=== PATIENT | female | born 1970 | race Caucasian/White ===

== ENCOUNTER → 2017-06-18 | Outpatient (CLI) | payer OTHER ==
[~2017-06-18] MED LIST: LISI20TA3 PO; NAPR1TAB9 PO
--- NOTE | 2017-06-18 12:23 | DIAGNOSTIC IMAGING REPORT ---
C-SPINE ROUTINE 4 OR 5 VIEWS CLINICAL HISTORY: 46 years-old Female presenting with CERVICAL STRAIN after lifting something heavy, sore neck. TECHNIQUE: Frontal, bilateral oblique, lateral, and open-mouth odontoid views of the cervical spine were obtained. COMPARISON: MR from 2008. FINDINGS: Straightening of cervical lordosis, possibly positional. Vertebral body heights and intervertebral disc spaces preserved. No radiographic evidence of acute fracture or subluxation. Normal predental interval. Mild right osseous neural foraminal narrowing at C4-5 and C5-6 may be present. Left neural foramina widely patent. No prevertebral soft tissue swelling. The lateral masses of C1 articulate normally with C2. IMPRESSION: Possible mild right osseous neural foraminal narrowing at C4-5 and C5-6. This would be better characterized on cross-sectional imaging. No radiographic evidence of acute osseous injury of the cervical spine. Electronically signed by: Clement Becker M.D. 06/18/2017 12:22 PM Dictated Date/Time: 06/18/2017 12:19 PM
== END | disposition home or self-care (01) ==
LOC: C.RAD1850 11:59
PROVIDERS: ATTEND Preventive Medicine Occupational Medicine
DX: S16.1XXA Strain of muscle, fascia and tendon at neck level, initial encounter (principal); X58.XXXA Exposure to other specified factors, initial encounter

== ENCOUNTER → 2018-06-02 | Outpatient (CLI) | payer OTHER ==
--- NOTE | 2018-06-02 13:19 | DIAGNOSTIC IMAGING REPORT ---
L ANKLE MIN 3 VIEWS ROUTINE CLINICAL HISTORY: S99.919A left ankle pain status post trauma COMPARISON: None. DISCUSSION: There is minor lateral soft tissue swelling. No fractures or dislocations are visualized. The ankle mortise appears intact. IMPRESSION: No acute fractures or dislocations identified. Electronically signed by: Per Wynn M.D. 06/02/2018 1:18 PM Dictated Date/Time: 06/02/2018 1:17 PM
== END | disposition home or self-care (01) ==
LOC: C.RAD1850 13:07
PROVIDERS: ATTEND Physician Assistant Medical
DX: S99.919A Unspecified injury of unspecified ankle, initial encounter (principal); X58.XXXA Exposure to other specified factors, initial encounter